=== PATIENT | female | born 1945 | race Hispanic/Latino ===

== ENCOUNTER 2016-10-18 10:39 | Outpatient (CLI) | payer MEDICARE, OTHER ==
--- NOTE | 2016-10-18 14:11 | Cat Scan Report ---
CT chest with contrast: Transverse images were obtained from the thoracic inlet into the upper abdomen. Coronal and sagittal 2-D reformatted images are included. Comparison is made to the prior study of January 17, 2016. Left mastectomy. There is no evidence of supraclavicular, axillary, or hilar adenopathy. There are some scattered shotty mediastinal lymph nodes. Unremarkable cardiopulmonary structures. In the lateral superior right lung there is a noncalcified, smooth contoured 6.4 mm nodule. A focal lung cyst is noted in the posterior right upper lobe. A subpleural focal 8.3 mm density is noted at the extreme medial left lung base. Numerous surgical clips are identified in the upper posterior abdomen. There is a right hepatic lobe mass consistent with cyst. There is a 19 mm exophytic right upper pole renal cyst, exophytic 4.3 mm upper pole left renal cyst, and a 4.4 cm peripelvic left renal cyst. There is an 8.5 mm right adrenal nodule. When compared to the prior exam the right upper lobe pulmonary nodule is slightly larger and better defined however this may be technical since I do not have precisely comparable slices showing the nodule. The left lower lobe nodular appearing density is unchanged and may represent focal atelectasis or scar. The right adrenal nodule is unchanged but has attenuation values making it indeterminate for adenoma. The left peripelvic renal cyst was not included on prior scan but the renal and hepatic cysts are otherwise unchanged. Impressions: The right upper lobe pulmonary nodule is probably benign but deserves followup as does the left basilar opacity. The right adrenal mass is indeterminate but stable. Recommendation: Repeat scan in 6 months to reevaluate the above findings.
== END 2016-10-18 10:40 | disposition home or self-care (01) ==
LOC: SPVIMAG 10:39
PROVIDERS: ATTEND Internal Medicine Hematology & Oncology
DX: C50.112 Malignant neoplasm of central portion of left female breast (principal); R91.1 Solitary pulmonary nodule; N28.1 Cyst of kidney, acquired; J98.4 Other disorders of lung; K76.89 Other specified diseases of liver; E27.8 Other specified disorders of adrenal gland; Z90.12 Acquired absence of left breast and nipple
CPT/HCPCS: 71260; Q9967

== ENCOUNTER 2017-02-22 08:25 | Outpatient (CLI) | payer MEDICARE, OTHER ==
--- NOTE | 2017-02-22 15:06 | Cat Scan Report ---
CT CHEST, ABDOMEN AND PELVIS WITH CONTRAST: 02/22/17 08:25:00 CLINICAL: History of left breast cancer. Followup lung nodule. New abdominal pain. COMPARISON: 10/18/16 and 01/17/16 CT chest. TECHNIQUE: Volumetric acquisition and 1.25 millimeter scan reconstructions after the uneventful intravenous injection of 100 cc of Omnipaque 300. Consent was obtained prior to the administration of the contrast. Oral contrast was also given. FINDINGS: Chest: The previously described noncalcified right upper lobe peripheral lung nodule near the pleura is less prominent and measures 4 mm image 34, series 2. The 8mm nodular opacity in the left costophrenic sulcus is also stable. No Nodule or mass. No airspace disease or pleural effusion. Normal aorta, heart and pulmonary arteries. Normal esophagus and trachea. No mediastinal or hilar lymphadenopathy.No axillary or supraclavicular lymphadenopathy. Abdomen: The liver is borderline small with a stable 2.5 cm cyst at the inter lobar fissure. No liver mass. The gallbladder and bile ducts are normal. Normal stomach, duodenum, pancreas and spleen. Bilateral renal cysts are unchanged. The largest is in the upper left kidney and measures 4.8 x 4.0 cm. A 10 mm right adrenal nodule is not significantly changed. The left adrenal gland is normal. The renal collecting systems and ureters are nondilated. Normal aorta and inferior vena cava. No lymphadenopathy.No ascites.Normal small bowel. Normal ascending, transverse and descending colon. An appendix is not identified. Status post ventral abdominal hernia repair with an intact mesh graft. No abdominal mass. Pelvis: Absence of uterus and normal vaginal cuff. Ovaries are not identified. No adnexal mass or free fluid. Normal sigmoid anastomosis. The rectum is normal. Bone windows demonstrate no suspicious bone lesion. IMPRESSION:1. A probably benign right upper lobe noncalcified lung nodule which measures slightly smaller on this exam and a stable probably benign left lower lobe nodular lung opacity. 2. No evidence of hepatic, priscila or skeletal metastasis. 3. A benign right adrenal adenoma. 4. Status post ventral hernia repair with an intact ventral mesh graft. 5. Normal sigmoid colon anastomosis. 6. Status post hysterectomy.
== END 2017-02-22 08:26 | disposition home or self-care (01) ==
LOC: SPVIMAG 08:25
PROVIDERS: ATTEND Internal Medicine Hematology & Oncology
DX: D35.01 Benign neoplasm of right adrenal gland (principal); R91.1 Solitary pulmonary nodule; K76.89 Other specified diseases of liver; N28.1 Cyst of kidney, acquired; K63.89 Other specified diseases of intestine; Z90.710 Acquired absence of both cervix and uterus; Z85.3 Personal history of malignant neoplasm of breast
CPT/HCPCS: 71260; 74177; Q9967